=== PATIENT | female | born 1940 | race African-American/Black ===

== ENCOUNTER 2017-06-03 16:18 | Emergency (ER) | payer MEDICARE, MEDICAID ==
[~2017-06-03] VITALS: Ht 157.5 cm; Wt 89.5 kg
[~2017-06-03 16:18] MED LIST: LISINOPRIL5 MG PO; SIMVASTATIN10 MG PO; TRAMADOL HCL50 MG PO
[2017-06-03 17:03] LABS: IMMATURE GRANULOCYTES 0.4 % (0.0-1.0); MEAN CELL VOLUME 88.4 fL CALC (80.0-100.0); MEAN CORPUSCULAR HGB 29.5 pG CALC (26.0-32.0); MEAN CORPUSCULAR HGB CONC 33.3 g/L CALC (32.0-36.0); NEUT# 2.83 thou/uL (2.00-7.15); RED BLOOD COUNT 4.75 mill/uL (4.20-5.60); RED CELL DISTRI WIDTH 13.2 % (11.5-15.5)
[2017-06-03 17:11] LABS: ALBUMIN 4.1 g/dL (3.2-5.0); ALKALINE PHOSPHATASE 87 u/l (38-126); ANION GAP 14 (6-22 (CALC)); BILIRUBIN, TOTAL 0.7 mg/dL (0.0-1.4); BUN 13 mg/dL (8-23); BUN/CREATININE RATIO 20 (12-20 (CALC)); CALCIUM 9.6 mg/dL (8.4-10.2); CARBON DIOXIDE 26 mmol/l (22-30); CHLORIDE 106 mmol/l (95-108); CREATININE 0.6 mg/dL (0.5-1.0); GFR > 60 ML/MIN (>=60 (CALC)); GFR FOR AFR.AMER. > 60 ML/MIN (>=60 (CALC)); GLUCOSE 97 mg/dL (82-115); POTASSIUM 4.1 mmol/l (3.5-5.1); SGOT/AST 15 u/l (9-36); SGPT/ALT 23 u/l (11-66); SODIUM 142 mmol/l (137-146); TOTAL PROTEIN 6.8 g/dL (6.3-8.2)
[2017-06-03 17:23] LABS: MYOGLOBIN 45 ng/mL (0 - 62)
[2017-06-03] MEDS ORDERED: TYLENOL # 31 TAB PO (18:04)
[2017-06-03] MEDS ORDERED: LEVAQUIN750 MG PO (18:04)
[2017-06-03 20:15] VITALS: BP 152/76
== END 2017-06-03 20:15 | disposition home or self-care (01) ==
LOC: ED 16:18
PROVIDERS: Emergency Medicine
DX: J20.8 Acute bronchitis due to other specified organisms (principal); R05 Cough; R06.02 Shortness of breath; R22.1 Localized swelling, mass and lump, neck; I77.819 Aortic ectasia, unspecified site

== ENCOUNTER 2022-06-07 12:34 | Observation (INO) | payer MEDICARE, MEDICAID ==
[~2022-06-07] VITALS: Ht 157.5 cm; Wt 73.0 kg
[~2022-06-07 12:34] MED LIST changes: +LEVAQUIN750 MG PO; +TYLENOL # 31 TAB PO
--- NOTE | 2022-06-07 12:51 | NUR ---
PATIENT TO ROOM 8 VIA WHEELCHAIR.
[2022-06-07 13:16] LABS: HEMATOCRIT 42.2 % (37.0-47.0); HEMOGLOBIN 14.2 g/dl (12.0-16.0); IMMATURE GRANULOCYTES 0.3 % (0.0-5.0); MEAN CORPUSCULAR HGB 29.3 pG CALC (26.0-32.0); MEAN CORPUSCULAR HGB CONC 33.6 g/dL CAL (32.0-36.0); NEUT# 4.79 thou/uL (2.00-7.15); RED BLOOD COUNT 4.85 mill/uL (4.20-5.60); RED CELL DISTRI WIDTH 14.4 % (11.5-15.5)
[2022-06-07 13:29] LABS: ALBUMIN 4.1 g/dL (3.2-5.0); ALKALINE PHOSPHATASE 116 u/l (38-126); ANION GAP 13 (6-22 (CALC)); BILIRUBIN, TOTAL 0.6 mg/dL (0.0-1.4); BUN 8 mg/dL (8-23); BUN/CREATININE RATIO 15 (12-20 (CALC)); CARBON DIOXIDE 30 mmol/l (22-30); CHLORIDE 99 mmol/l (95-108); CPK 34 u/l (30-165); CREATININE 0.5 mg/dL (0.5-1.0); GFR FOR AFR.AMER. > 60 ML/MIN (>=60 (CALC)); GFR OTHER RACES > 60 ML/MIN (>=60 (CALC)); POTASSIUM 3.6 mmol/l (3.5-5.1); SODIUM 138 mmol/l (137-146); TOTAL PROTEIN 7.4 g/dL (6.3-8.2)
[2022-06-07 13:30] LABS: SGOT/AST 20 u/l (9-36)
--- NOTE | 2022-06-07 13:30 | NUR ---
assisted patient to reposition. patient laying in bed with family at beside. no acute distress
[2022-06-07 13:41] LABS: MYOGLOBIN 35 ng/mL (0 - 62)
--- NOTE | 2022-06-07 14:20 | NUR ---
patient lying in bed. no acute distress noted. family at bedside
--- NOTE | 2022-06-07 15:02 | NUR ---
straight cath completed. urine collected for screening. cheryl care provided. patient has no complaints at this time
[2022-06-07 15:37] LABS: URINE BILIRUBIN - DIPSTICK NEGATIVE (NEGATIVE); URINE BLOOD DIPSTICK SMALL (NEGATIVE); URINE COLOR YELLOW; URINE GLUCOSE - DIPSTICK NEGATIVE (NEGATIVE); URINE KETONE NEGATIVE (NEGATIVE); URINE PROTEIN - DIPSTICK TRACE mg/dL (NEG-TRACE); URINE UROBILINOGEN - DIPSTICK 0.2 E.U./dL (0.2)
[2022-06-07 15:51] LABS: URINE LEUK ESTERASE LARGE (NEGATIVE); URINE NITRITE - DIPSTICK POSITIVE (Negative)
[2022-06-07 16:04] LABS: URINE SQUAMOUS EPITHELIAL CELL FEW EPI/hpf (0-FEW); URINE WBC TNTC WBC/hpf (0-5)
[2022-06-07 16:05] LABS: URINE BACTERIA MANY hpf
--- NOTE | 2022-06-07 16:44 | NUR ---
TELEHEALTH CONSULT WITH ÓSCAR KIRBY COMPLETED IN ROOM VIA TELECART.
--- NOTE | 2022-06-07 17:03 | NUR ---
PATIENT RESTING IN BED. NO ACUTE DISTRESS. PATIENT HAS NO COMPLAINTS AT THIS TIME
--- NOTE | 2022-06-07 18:20 | NUR ---
PATIENT TO FLOOR AT THIS TIME.
[2022-06-07 18:32] VITALS: BP 123/69
--- NOTE | 2022-06-07 18:37 | NUR ---
bedside report given to guili. no acute distress noted. patient has no complaints. assisted patient to bed.
--- NOTE | 2022-06-07 21:15 | NUR ---
PT WAS NOTED IN BED LAYING FOLWERS. PT WAS A&O X3 TO PERSON, PLACE,AND TIME. PT WAS GOOD HISTORIAN THROUGH OUT ADM,ISSIONS PROCESS. PT DID NOT VERBALIZE OR SHOW ANY SIGNS OF SOB. PT MOOD WAS CALM AND COOPERATIVE. PT WAS A 1X ASSIST TO TURN IN BED. PT IS UNABLE TO MOVE LOWER EXTREMETIES OR FEEL SENSATION. PT DID STATE "MUSCLE SPASMS" IN LOWER EXTREMETIES. PT DID VERBALIZE PAIN IN LEFT SHOULDER OF 6 OUT OF A 0-10 SCALE. PT OFFERED HEATING PACK AND REPOSTIONED FOR COMFORT MEASURES. WILL CONTINUE FOLLOWING CARE PLAN AND MONITOR PT.
[2022-06-08] VITALS (7 sets, daily range): BP systolic 118–135; BP diastolic 60–72
--- NOTE | 2022-06-08 00:29 | NUR ---
PT NOTED IN BED SLEEPING FOWLERS. PT SHOWED NO S/S OF DISTRESS OR DISCOMFORT. CALL LIGHT AND TABLE WITHIN REACH OF PT. BEDWHEELS LOCKED, IN LOWEST POSITION AND SIDE RAILS UP. WILL CONTINUE TO MONITOR.
--- NOTE | 2022-06-08 04:40 | NUR ---
PT NOTED IN BED, FOWLERS, SLEEPING. NO S/S OF PAIN OR DISCOMFORT PRESENT. CALL LIGHT AND BEDSIDE TABLE WITHIN REACH. WILL CONTINUE TO MONITOR AND FOLLOW UP WITH CARE PLAN.
--- NOTE | 2022-06-08 07:31 | NUR ---
PT RESTING IN BED STATES NO PAIN. UPDATE DPT IN CURRENT PLAN OF CARE. PT INDICATED UNDERSTADNING. ASSESSMENT COMPLETED. FALL/SAFTEY PRECAUTION IN PLACE, CALL LIGHT WITHIN REACH
[2022-06-08 11:08] LABS: CHOLESTEROL HDL RATIO 3.2 (<4.4 (CALC))
--- NOTE | 2022-06-08 12:00 | NUR ---
PT RESTING WATCHNG TV. BREATHING EVEN AND UNLABORED. STATES NO PAIN. FALL/SAFTEY PRECAUTION IN [place], CALL LIGHT WITHIN REACH
--- NOTE | 2022-06-08 16:00 | NUR ---
PT RESTING IN BED. NO DISTRESS NOTED. FALL/SAFTEY PRECAUTION IN [place], CALL LIGHT WITHIN REACH
--- NOTE | 2022-06-08 16:53 | NUR ---
CONTACTED [employer] TO ORDER AN AIR MATTRESS (P500). SPOKE WITH FIDEL AT 1640 HRS. CONFIRMATION # [id number].
--- NOTE | 2022-06-08 17:16 | NUR ---
PT RESTING WTACHING TV. STATES NO PAIN. BREATHING EVEN AND UNLABORED. FALL/SAFTEY PRECAUTION IN PLACE, CALL LIGHT WITHIN REACH
--- NOTE | 2022-06-08 20:00 | NUR ---
PT IN BED FOWLERS, WATCHING TV. COMPLETED ASSEMENT AND IV ASSESS ON PT. NS FLUID RUNNING PER EMAR. IV SITE PRESENTS HEALTHY AND PT DENIES ANY DISCOMFORT. NOTED "PEA SIZE" REDNESS ON PT INNER RIGHT THIGH DURING ASSESSMENT. RN NOTIFIED. PT DENIES ANY PAIN OR DISCOMFORT AT THIS TIME. NO S/S OF DISCOMFORT OR DISTRESS PRESENT. CALL LIGHT AND BEDSIDE TABLE WITHIN REACH OF PT. BEDWHEELS LOCKED AND IN LOWEST POSITION. WILL CONTINUE TO FOLLOW UP WITH CARE PLAN AND MONITOR PT.
--- NOTE | 2022-06-09 00:11 | NUR ---
PT IN BED SLEEPING, HEAD OF BED 30 DEGREE ANGLE. NO S/S OF DISTRESS OR DISCOMFORT. SAFETY PRECAUTIONS IN PLACE. WILL CONTIUE TO MONITOR.
--- NOTE | 2022-06-09 04:05 | NUR ---
PT WAS TRANSFERRED VIA [employer] LIFT TO AN AIR MATRESS BED. PT LAYING FOWLERS IN BED, AWAKE. PT DENIES ANY PAIN OR DISCOMFORT AT THIS TIME. SAFETY PRECAUTIONS IN PLACE. WILL CONTINUE TO MONITOR.
[2022-06-09 05:17] VITALS: BP 146/70
[2022-06-09 05:45] LABS: HEMATOCRIT 39.7 % (37.0-47.0); MEAN CELL VOLUME 88.2 fL CALC (80.0-100.0); MEAN CORPUSCULAR HGB 28.9 pG CALC (26.0-32.0); MEAN CORPUSCULAR HGB CONC 32.7 g/dL CAL (32.0-36.0); RED BLOOD COUNT 4.5 mill/uL (4.20-5.60); RED CELL DISTRI WIDTH 14.7 % (11.5-15.5)
[2022-06-09 06:04] LABS: ALBUMIN 3.3 g/dL (3.2-5.0); ALKALINE PHOSPHATASE 95 u/l (38-126); ANION GAP 9 (6-22 (CALC)); BILIRUBIN, TOTAL 0.4 mg/dL (0.0-1.4); BUN 8 mg/dL (8-23); BUN/CREATININE RATIO 18 (12-20 (CALC)); CARBON DIOXIDE 28 mmol/l (22-30); CHLORIDE 104 mmol/l (95-108); CREATININE 0.5 mg/dL (0.5-1.0); GFR FOR AFR.AMER. > 60 ML/MIN (>=60 (CALC)); GFR OTHER RACES > 60 ML/MIN (>=60 (CALC)); POTASSIUM 3.6 mmol/l (3.5-5.1); SGOT/AST 16 u/l (9-36); SODIUM 138 mmol/l (137-146)
--- NOTE | 2022-06-09 07:00 | NUR ---
RECEIVE REPORT FROM MONICA BROWN.
[2022-06-09 07:22] VITALS: BP 146/71
[2022-06-09 07:23] VITALS: BP 146/71
--- NOTE | 2022-06-09 08:00 | NUR ---
PATIENT ALERT AND ORIENTED X3. RESTING STABLE IN BED AT THIS TIME. ASSESSMENTE HEAD-TO TOE COMPLETE. PATIENT IS EDUCATED ABOUD MEDICATIONS AND NURSING PLAN FOR TODAY. PATIENT REFER UNDERSTAND. SAFETY AND FALL PRECAUTIONS IN PLACE. CALL LIGHT WITHIN IN REACH.
[2022-06-09 15:14] VITALS: BP 144/69
--- NOTE | 2022-06-09 16:00 | NUR ---
PATIENT RESTING STABLE IN THE BED.
[2022-06-09 18:48] VITALS: BP 145/75
[2022-06-09 19:00] VITALS: BP 145/75
--- NOTE | 2022-06-09 21:45 | NUR ---
ASSESSMENT COMPLETE. PATIENT AWAKE, ALERT AND ORIENTED. VSS, NO DISTRESS NOTED. DENIES PAIN AT THIS TIME. BED IN LOW POSITION, LOCKED. CALL LIGHT WITHIN REACH.
--- NOTE | 2022-06-09 23:40 | NUR ---
RESTING QUIETLY EYES CLOSED. NO DISTRESS NOTED CALL LIGHT WITHIN REACH.
--- NOTE | 2022-06-10 01:45 | NUR ---
report given to Telly ALCAZAR
--- NOTE | 2022-06-10 01:45 | NUR ---
REPORT RECEIVED FROM Manjula FLOYD RN, CARE OF PT ASSUMED AT THIS TIME.
--- NOTE | 2022-06-10 02:00 | NUR ---
PT LAYING IN BED WITH EYES CLOSED, RESPIRATIONS REGULAR AND UNLABORED. NO APPARENT DISTRESS. APPEARS TO BE SLEEPING COMFORTABLY. CALL ROOT WITHIN REACH.
[2022-06-10 04:00] VITALS: BP 142/76
[2022-06-10 04:21] VITALS: BP 142/76
--- NOTE | 2022-06-10 06:00 | NUR ---
PT LAYING IN BED WITH EYES CLOSED, RESPIRATIONS REGULAR AND UNLABORED. NO APPARENT DISTRESS. APPEARS TO BE SLEEPING COMFORTABLY. CALL ROOT WITHIN REACH.
[2022-06-10 06:18] LABS: HEMATOCRIT 41.1 % (37.0-47.0); HEMOGLOBIN 13.7 g/dl (12.0-16.0); MEAN CELL VOLUME 88.4 fL CALC (80.0-100.0); MEAN CORPUSCULAR HGB 29.5 pG CALC (26.0-32.0); MEAN CORPUSCULAR HGB CONC 33.3 g/dL CAL (32.0-36.0); RED BLOOD COUNT 4.65 mill/uL (4.20-5.60); RED CELL DISTRI WIDTH 14.6 % (11.5-15.5)
[2022-06-10 06:30] LABS: ALBUMIN 3.5 g/dL (3.2-5.0); ALKALINE PHOSPHATASE 102 u/l (38-126); ANION GAP 11 (6-22 (CALC)); BILIRUBIN, TOTAL 0.3 mg/dL (0.0-1.4); BUN 10 mg/dL (8-23); BUN/CREATININE RATIO 22 (12-20 (CALC)); CARBON DIOXIDE 31 mmol/l (22-30); CHLORIDE 102 mmol/l (95-108); CREATININE 0.5 mg/dL (0.5-1.0); GFR FOR AFR.AMER. > 60 ML/MIN (>=60 (CALC)); GFR OTHER RACES > 60 ML/MIN (>=60 (CALC)); POTASSIUM 4.2 mmol/l (3.5-5.1); SGOT/AST 18 u/l (9-36); SODIUM 140 mmol/l (137-146); TOTAL PROTEIN 6.4 g/dL (6.3-8.2)
--- NOTE | 2022-06-10 07:00 | NUR ---
RECEIVE REPORT FROM KIKI BROWN.
--- NOTE | 2022-06-10 12:34 | NUR ---
PATIENT REMAINS RESTING IN BED WITH EYES CLOSED. NO SIGNS OF DISTRESS NOTED. NO COMPLAINTS OF PAIN. BED REMAINS IN LOW POSITION. SAFETY AND FALL PRECAUTIONS IN PLACE. CALL LIGHT WITHIN IN REACH.
[2022-06-10 14:12] VITALS: BP 145/73
--- NOTE | 2022-06-10 14:47 | NUR ---
pt checked at this time for incontinence.pt requested to be checked felt like she was wet. pt still has purwick in place. pt had 500 ml out of urine. pt not wet at this time.
--- NOTE | 2022-06-10 16:00 | NUR ---
PATIENT RESTING IN BED. NO COMPLAINTS VOICED AT THIS TIME. BED REMAINS IN LOW POSITION. CALL LIGHT IN REACH.
--- NOTE | 2022-06-10 17:00 | NUR ---
Discharge instructions given. Patient verbalizes understanding of same. Discharged in stable condition via Stretcher to *Other with staff. All belongings sent with pt.
--- NOTE | 2022-06-10 17:28 | NUR ---
PATIENT HAVE ORDER FOR TRANSFER TO [facility]. PATIENT AND FAMILY IS EDUCATED ABOUD TRANSFER. BOTH REFER UNDERSTAND. REPORT GIVEN TO CARROLL ALCAZAR. PATIENT STABLE AT THIS TIME.
== END 2022-06-10 17:53 | disposition short-term general hospital (02) ==
LOC: ED 12:34 → ED-I 16:25 → ED 17:24 → MS2 17:25
PROVIDERS: Nurse Practitioner; Nurse Practitioner Family; ADMIT Internal Medicine; ATTEND Internal Medicine
DX: M48.8X4 Other specified spondylopathies, thoracic region (principal); G95.29 Other cord compression; N39.0 Urinary tract infection, site not specified; R15.9 Full incontinence of feces; N39.498 Other specified urinary incontinence; K59.00 Constipation, unspecified; I10 Essential (primary) hypertension; G62.9 Polyneuropathy, unspecified; E78.5 Hyperlipidemia, unspecified; G82.20 Paraplegia, unspecified; B96.89 Other specified bacterial agents as the cause of diseases classified elsewhere; Z74.01 Bed confinement status; Z20.822 Contact with and (suspected) exposure to COVID-19

== ENCOUNTER 2022-08-08 06:56 | Inpatient (IN) | payer MEDICARE, MEDICAID ==
[2022-08-08] VITALS (7 sets, daily range): BP systolic 126–166; BP diastolic 62–100
[~2022-08-08] VITALS: Ht 154.9 cm; Wt 91.4 kg
--- NOTE | 2022-08-08 07:07 | NUR ---
PATIENTT TO ROOM 14
--- NOTE | 2022-08-08 07:30 | NUR ---
RESPIRATORY AT BEDSIDE, O2 TURNED OFF BY AT 0715 AND O2% IS 96% ON RA. NAD. VSS. BILAT IV'S PLACED IN AC'S.
[2022-08-08 08:53] LABS: BASO% 0.4 % (0-3); IMMATURE GRANULOCYTES 3.6 % (0.0-5.0); LYMPH% 19.1 % (15-41); MEAN CELL VOLUME 86.8 fL CALC (80.0-100.0); MEAN CORPUSCULAR HGB 28.6 pG CALC (26.0-32.0); MONO% 5.6 % (2-13); NEUT# 3.82 thou/uL (2.00-7.15); NEUT% 71.3 % (42-76); RED BLOOD COUNT 5.76 mill/uL (4.20-5.60); RED CELL DISTRI WIDTH 15.9 % (11.5-15.5)
[2022-08-08 08:53] LABS: ALBUMIN 3.6 g/dL (3.2-5.0); ALKALINE PHOSPHATASE 103 u/l (38-126); ANION GAP 8 (6-22 (CALC)); BUN 11 mg/dL (8-23); BUN/CREATININE RATIO 32 (12-20 (CALC)); CARBON DIOXIDE 33 mmol/l (22-30); CHLORIDE 97 mmol/l (95-108); CREATININE 0.4 mg/dL (0.5-1.0); GFR FOR AFR.AMER. > 60 ML/MIN (>=60 (CALC)); GFR OTHER RACES > 60 ML/MIN (>=60 (CALC)); POTASSIUM 3.6 mmol/l (3.5-5.1); SGOT/AST 26 u/l (9-36); SODIUM 135 mmol/l (137-146); TOTAL PROTEIN 6.8 g/dL (6.3-8.2)
[2022-08-08 08:54] LABS: HEMOGLOBIN 16.5 g/dl (12.0-16.0)
[2022-08-08 08:59] LABS: BILIRUBIN, TOTAL 0.7 mg/dL (0.02-1.3)
[2022-08-08] MEDS ORDERED: NORVASC5 M1 PO (10:08)
[2022-08-08] MEDS ORDERED: DEXAMETHASON0.5 MG PO (10:10)
[2022-08-08] MEDS ORDERED: KLOR-CON M2020 MEQ PO (10:10)
[2022-08-08] MEDS ORDERED: PROTONIX40 M2 PO (10:11)
--- NOTE | 2022-08-08 10:20 | NUR ---
Reassessment of patient completed. No distress noted.
--- NOTE | 2022-08-08 17:23 | NUR ---
PATIENT REPORTS SOB INFORMED MD. PATIENT OXYGEN LEVEL ON RA 97%. WAITING PRN INHALER.
--- NOTE | 2022-08-08 17:59 | NUR ---
PRN INHALER GIVEN ENCOURAGE PATIENT TO ASK FOR IT IF SOB CONTINUES
--- NOTE | 2022-08-08 20:00 | NUR ---
RECEIVED REPORT FROM NURSE YULIYA, PATIENT ON COVID ISOLATION, ALERT ORIENTED CURRENTLY EATING DINNER, SALINE LOCK NOTED ON RAC G 22 AND G 20 LAC BOTH PATENT FLUSHES WELL, REMAINS ON TELEMETRY SR WITH IVCD 89, COARSE LUNG SOUNDS, ACTIVE BOWEL SOUNDS LBM 08/08, CALL LIGHT IN REACH.
--- NOTE | 2022-08-09 | NUR ---
PATIENT IN BED, INCONTINET OF BLADDER, PERICARE DONE AND PUREWICK NOW IN PLACE.
[2022-08-09 00:08] VITALS: BP 116/54
--- NOTE | 2022-08-09 04:00 | NUR ---
PATIENT RESTING IN BED EYES CLOSED, BREATHING UNLABORED, REMAINS ON ISOLATION FOR COVID, CALL LIGHT IN REACH.
[2022-08-09 04:20] VITALS: BP 123/55
[2022-08-09 05:29] LABS: HEMATOCRIT 44.4 % (37.0-47.0); HEMOGLOBIN 15.2 g/dl (12.0-16.0); IMMATURE GRANULOCYTES 2.6 % (0.0-5.0); LYMPH% 7.9 % (15-41); MEAN CELL VOLUME 85.9 fL CALC (80.0-100.0); MEAN CORPUSCULAR HGB 29.4 pG CALC (26.0-32.0); MEAN CORPUSCULAR HGB CONC 34.2 g/dL CAL (32.0-36.0); MONO% 5.4 % (2-13); NEUT# 4.79 thou/uL (2.00-7.15); NEUT% 84.1 % (42-76); RED BLOOD COUNT 5.17 mill/uL (4.20-5.60); RED CELL DISTRI WIDTH 15.3 % (11.5-15.5)
[2022-08-09 05:40] LABS: ALBUMIN 3.1 g/dL (3.2-5.0); ALKALINE PHOSPHATASE 88 u/l (38-126); ANION GAP 6 (6-22 (CALC)); BUN 13 mg/dL (8-23); BUN/CREATININE RATIO 25 (12-20 (CALC)); CARBON DIOXIDE 32 mmol/l (22-30); CHLORIDE 99 mmol/l (95-108); CREATININE 0.5 mg/dL (0.5-1.0); GFR FOR AFR.AMER. > 60 ML/MIN (>=60 (CALC)); GFR OTHER RACES > 60 ML/MIN (>=60 (CALC)); MAGNESIUM 2.3 mg/dL (1.6-2.3); POTASSIUM 3.5 mmol/l (3.5-5.1); SGOT/AST 21 u/l (9-36); SODIUM 132 mmol/l (137-146)
[2022-08-09 05:49] LABS: BILIRUBIN, TOTAL 0.2 mg/dL (0.02-1.3)
[2022-08-09 06:18] LABS: URINE BILIRUBIN - DIPSTICK NEGATIVE (NEGATIVE); URINE BLOOD DIPSTICK SMALL (NEGATIVE); URINE COLOR YELLOW; URINE GLUCOSE - DIPSTICK 250 mg/dL (NEGATIVE); URINE KETONE NEGATIVE (NEGATIVE); URINE PROTEIN - DIPSTICK NEGATIVE (NEG-TRACE); URINE SPECIFIC GRAVITY 1.015
[2022-08-09 06:20] LABS: URINE LEUK ESTERASE MODERATE (NEGATIVE); URINE NITRITE - DIPSTICK NEGATIVE (Negative)
[2022-08-09 06:22] LABS: URINE BACTERIA FEW hpf; URINE SQUAMOUS EPITHELIAL CELL FEW EPI/hpf (0-FEW)
[2022-08-09 07:13] VITALS: BP 161/81
[2022-08-09 10:22] VITALS: BP 158/89
--- NOTE | 2022-08-09 18:29 | NUR ---
PATIENT STATES FEELING BETTER. NO CHANGES AT THIS TIME. WILL CONTINUE TO MONITOR.
[2022-08-09 19:14] VITALS: BP 139/67
[2022-08-10] VITALS (7 sets, daily range): BP systolic 124–152; BP diastolic 61–81
--- NOTE | 2022-08-10 07:49 | NUR ---
0700 REPORT RECEIVED FROM DAYLIN. PT RESTING IN BED WITH EYES OPEN. PT ALERT AND ORIENTED X 4. RESP EVEN AND UNLABORED. NO SIGNS OF DISTRESS NOTED. PT UPDATED ON POC, WILL NEED REINFORCEMENT. ALL PERSONAL ITEMS WITHIN REACH. SAFETY PRECAUTIONS IN PLACE.
--- NOTE | 2022-08-10 12:36 | NUR ---
PT REPORTS BEING SOB, OXYGEN SAT OM ROOM AIR 95%. OXYGEN THERAPY AT 2L NC FOR COMFORT, O2 SATS 96-97%. VENTOLIN INHALER X [address] MUSE MADE AWARE AND NEW ORDERS RECEIVED. PT RESTING QUIETLY IN BED EATING LUNCH. WILL CONTINUE TO MONITOR.
--- NOTE | 2022-08-10 15:05 | NUR ---
02 2L NC SAT 97%
[2022-08-11] VITALS (7 sets, daily range): BP systolic 108–175; BP diastolic 66–94
--- NOTE | 2022-08-11 05:39 | NUR ---
pt slept mostly, tolrate meds as order, vitals stable, call light within reached, will cont to monitor
--- NOTE | 2022-08-11 08:00 | NUR ---
PT IN BED RESTING, AWKAE AND ALERT. PT HAS NO C/O PAIN, PT HAS TELE ON ALL LEADS ATTACHED. PT HAS IV SITE TO RAC WITH NS @80ML/HR , PT ALSO HAS IV SITE TO LAC THAT IS PATENT AND CLEAN. PUREWICK ON AND DRAINING DARK YELLOW URINE. PT HAS O2@2L VIA NC. PT HAS CALL LIGHT WITHIN REACH AND SAFETY PRECAUTIONS IN PLACE.
--- NOTE | 2022-08-11 11:14 | NUR ---
ORDER ENTERED TO TITRATE OCXYGEN. O2 CURRENTLY AT 1 LITER NC. DECREASED TO 0.5L NC, PT PULSE OX AT 98%. WILL CONTINUE TO MONITOR.
[2022-08-11] MEDS ORDERED: OMNICEF300 MG PO (12:38)
--- NOTE | 2022-08-11 13:30 | NUR ---
PT IN BED WITH HEAD OF BED UP, PT NOTED BY PROVIDER TO HAVE COARSE LUNG SOUNDS. RT WAS CALLED FOR INTERVENTIONS TO ASIST PT IN CLEAING LUNGS. PER PROVIDER STOP IV FLUIDS AND PUSH LASIX IV 40 MG. WILL CONTINUE TO MONITOR PT AND LUNG SOUNDS CLOSELY.
--- NOTE | 2022-08-11 16:20 | NUR ---
PY IN BED RESTING , HEAD OF BED UP. PT IS AWAKE AND ALERT, LUNG SOUNDS COARSE UT IMPROVING WITH LASIX. MUCINEX ORDERED AND GIVEN. PT HAS O2@ 0.5L VIA NC IV SITE TO LAC CLEAN AND INTACT, IV SITE TO RAC CLEAN AND INTACT WELL. PT HAS NO C/O PAIN AT THIS TIME. PUREWICK IS ON WITH CLEAR, YELLOW URINE. CALL LIGHT WITHIN REACH, SAFETY MEASURES IN PLACE.
--- NOTE | 2022-08-12 01:03 | NUR ---
PT SLEEPING, RESTING IN BED. VITALS STABLE. NO COMPLAINTS FROM PT.
[2022-08-12 04:44] VITALS: BP 125/69
[2022-08-12 06:28] VITALS: BP 119/70
--- NOTE | 2022-08-12 08:00 | NUR ---
PT LAYING IN BED WITH HOB UP AWAKE AND ALERT. PT HAS 02 @0.5 LITERS ON VIA NC, PT IV SITE TO RAC AND LAC, PATENT. PUREWICK IN PLACE AND DRAINING CLEAR ,YELLOW URINE. PT HAS NO C/O PAIN AT THIS TIME.
[2022-08-12 10:28] LABS: HEMATOCRIT 44.5 % (37.0-47.0); HEMOGLOBIN 15.1 g/dl (12.0-16.0); IMMATURE GRANULOCYTES 5.3 % (0.0-5.0); MEAN CELL VOLUME 85.1 fL CALC (80.0-100.0); MEAN CORPUSCULAR HGB 28.9 pG CALC (26.0-32.0); MEAN CORPUSCULAR HGB CONC 33.9 g/dL CAL (32.0-36.0); PLATELET COUNT 99 thou/uL (130-400); RED BLOOD COUNT 5.23 mill/uL (4.20-5.60); RED CELL DISTRI WIDTH 15.3 % (11.5-15.5)
[2022-08-12 10:36] LABS: MANUAL DIFFERENTIAL YES
[2022-08-12 10:52] VITALS: BP 139/94
[2022-08-12 11:02] LABS: ALBUMIN 2.8 g/dL (3.2-5.0); ALKALINE PHOSPHATASE 83 u/l (38-126); ANION GAP 10 (6-22 (CALC)); BILIRUBIN, TOTAL 0.3 mg/dL (0.02-1.3); BUN 14 mg/dL (8-23); BUN/CREATININE RATIO 50 (12-20 (CALC)); CARBON DIOXIDE 28 mmol/l (22-30); CHLORIDE 97 mmol/l (95-108); CREATININE 0.3 mg/dL (0.5-1.0); GFR FOR AFR.AMER. > 60 ML/MIN (>=60 (CALC)); GFR OTHER RACES > 60 ML/MIN (>=60 (CALC)); POTASSIUM 3.8 mmol/l (3.5-5.1); SGOT/AST 39 u/l (9-36); SODIUM 131 mmol/l (137-146); TOTAL PROTEIN 5.4 g/dL (6.3-8.2)
[2022-08-12 11:09] LABS: ACANTHOCYTES FEW; BAND 9 % (0-8); PLATELET ESTIMATE SLIGHT INCREASE; POIKILOCYTOSIS FEW
[2022-08-12 11:12] LABS: OVALOCYTES FEW; SCHISTOCYTES FEW
--- NOTE | 2022-08-12 11:30 | NUR ---
PT C/O SOB, LUNGS SOUNDS COURSE, PROVIDER AWARE. LASIX IV ORDERED AND GIVEN. PT VITAL SIGNS ARE NORMAL. PT COMFORTED TO HELP WITH ANXIETY. PT HAS CALL LIGHT WITHIN REACH. WILL CONTINUE TO MONITOR PT CLOSELY.
--- NOTE | 2022-08-12 12:00 | NUR ---
PT LAYING IN BED RESTING AT THIS ITME WITH EYES CLOSED. BREATHING IS NON LABORED AT THIS TIME. PULSE OX ATTACHED WITH 02 SAT AT 97%, REMAINS ON O2 AT 2 LITER NC. TELE LEADS ATTACHED. IV SITE INTACT AND FLUSHING. PT HAS NO C/O PAIN AT THIS TIME.
[2022-08-12 15:01] VITALS: BP 104/61
[2022-08-12 15:02] VITALS: BP 104/61
--- NOTE | 2022-08-12 16:00 | NUR ---
PT IN BED WITH HOB UP , PT HAS NO C/O PAIN AT THIS TIME. PT HAS TELE ON AND LEADS ATTACHED, O2@ 0.5L NC SATS @ 97%. WILL CONTINUE TO MONITOR CLOSELY. CALL LIGHT WITHIN PT REACH AND SAFETY PRECAUTIONS IN PLACE.
[2022-08-12 19:00] VITALS: BP 112/59
--- NOTE | 2022-08-12 20:00 | NUR ---
RECEIVED REPORT FROM NURSE MARIANO PATIENT RESTING IN BED, EATING DINNER, ON COVID ISOLATION, PATIENT IS PARAPLEGIC, ALERT ORIENTED, SALINE LOCK NOTED ON RAC G22 AND 22 ON LAC PATENT FLUSHES WELL, HOOKED ON TELEMETRY SR WITH IVCD 76, ON O2 @ 0.5LPM VIA NC, ON PUREWICK DRAINING YELLOW CLORED URINE CALL LIGHT IN REACH.
[2022-08-13] VITALS (7 sets, daily range): BP systolic 111–128; BP diastolic 64–72
--- NOTE | 2022-08-13 | NUR ---
PATIENT APPEARS TO BE RESTING WITH EYES CLSOED, REMAINS ON TELEMTERY SR WIT IVCD 80, NOT IN DISTRESS CALL LIGHT IN REACH.
--- NOTE | 2022-08-13 04:30 | NUR ---
PATIENT PRESS CALL LIGHT C/O SOB, PATIENT RESTLESS, SPO2 @ 92% PRN ATIVAN GIVEN V/S FOLLOWS: 121/78
--- NOTE | 2022-08-13 04:58 | NUR ---
SPO2 DOWN TO 80% RAISED O2 @ 5LPM STILL AT 83% CALLED RAPID RESPONSE, RESPIRATORY IN ROOM PLACE PATIENT ON A NON REBREATHER, PATIENT SOUND WET CRACKLES, CALLED FLUID JET CUTTER OPERATOR DR. CASTILLO, ORDER FOR A STAT CXR PORTABLE AND LASIX 40MG IV NOW.
[2022-08-13 05:30] LABS: BASO% 0.1 % (0-3); HEMATOCRIT 48.8 % (37.0-47.0); HEMOGLOBIN 16.8 g/dl (12.0-16.0); IMMATURE GRANULOCYTES 4.5 % (0.0-5.0); LYMPH% 7.3 % (15-41); MEAN CELL VOLUME 85.9 fL CALC (80.0-100.0); MEAN CORPUSCULAR HGB 29.6 pG CALC (26.0-32.0); MEAN CORPUSCULAR HGB CONC 34.4 g/dL CAL (32.0-36.0); MONO% 4.8 % (2-13); NEUT# 7.48 thou/uL (2.00-7.15); NEUT% 83.3 % (42-76); RED BLOOD COUNT 5.68 mill/uL (4.20-5.60); RED CELL DISTRI WIDTH 15.4 % (11.5-15.5)
[2022-08-13 05:43] LABS: ALBUMIN 3.3 g/dL (3.2-5.0); ALKALINE PHOSPHATASE 109 u/l (38-126); ANION GAP 10 (6-22 (CALC)); BUN 14 mg/dL (8-23); BUN/CREATININE RATIO 59 (12-20 (CALC)); CARBON DIOXIDE 30 mmol/l (22-30); CHLORIDE 95 mmol/l (95-108); CREATININE 0.2 mg/dL (0.5-1.0); GFR FOR AFR.AMER. > 60 ML/MIN (>=60 (CALC)); GFR OTHER RACES > 60 ML/MIN (>=60 (CALC)); POTASSIUM 4.4 mmol/l (3.5-5.1); SGOT/AST 45 u/l (9-36); SODIUM 130 mmol/l (137-146); TOTAL PROTEIN 6.3 g/dL (6.3-8.2)
[2022-08-13 05:53] LABS: BILIRUBIN, TOTAL 1.1 mg/dL (0.02-1.3)
--- NOTE | 2022-08-13 07:40 | NUR ---
PATIENT BACK ON NASAL CANULA AT 3LPM, MAINTAINING SATURATION AT 99-100% ON 3LPM, DAY NURSE AWARE, POST VOID AFTER LASIX 350CC YELLOW URINE.
--- NOTE | 2022-08-13 08:00 | NUR ---
ASSUMED CARE OF PT. PT IN NO DISTRESS. ASSESSMENT COMPLETE. PLAN OF CARE DISCUSSED. CALL LIGHT WITHIN REACH.
--- NOTE | 2022-08-13 12:00 | NUR ---
NO CHANGE FROM PREVIOUS ASSESSEMNT. PT IN BED. REFUSING TO BE TURNED. STATES SHE JUST WANTS TO SLEEP. FAMILY AT BEDSIDE.
--- NOTE | 2022-08-13 16:00 | NUR ---
PT RESTING IN BED. PER MAINTENANCE REPAIRMAN PT CLEANED AND REPOSITIONED. PT IN NO DISTRESS. CALL LIGHT WITHIN REACH.
--- NOTE | 2022-08-13 20:00 | NUR ---
RECEIVED REPORT FROM NURSE GÓMEZ, PATIENT RESTING IN BED, HOOKED ON O2 @3LPM VIA NC, BREATHING SHALLOW, COARSE LUNG SOUNDS, SALINE LOCK ON RAC G 22 PATENT FLUSHES WELL, SALINE LOCK ON LAC PATENT WELL, PATIENT REFUSED TO CHANGE IV SITE AT THIS TIME, PATIENT ON TELEMETRY SR WITH IVCD 66, LBM 2/4, CALL LIGHT IN REACH.
--- NOTE | 2022-08-14 | NUR ---
PATIENT IN BED, REMAINS ON O2 @ 3LPM VIA NC, RESTING EYES CLOSED, CALL LIGHT IN REACH.
--- NOTE | 2022-08-14 04:00 | NUR ---
PATIENT TURNED A ND REPOSITIONED, DRESSING ON SACRAL AREA NOT NEEDED AT THIS TIME, NO OPEN AREA NOTED, REMAINS ON 3LPM VIA NC NOT IN DISTRESS, CALL LIGHT IN REACH.
[2022-08-14 04:21] VITALS: BP 135/72
--- NOTE | 2022-08-14 05:53 | NUR ---
PATIENT REFUSED LABS THIS MORNING, DAY SHIFT LUGGAGE REPAIRER WILL RETRY.
--- NOTE | 2022-08-14 07:50 | NUR ---
0700 BEDSIDE REPORT RECEIVED FROM INGE STOVER. PT RESTING IN BED WITH EYES CLOSED, OXYGEN AT 3L NC. NO SIGNS OF DISTRESS NOTED. PT REMAINS ON AIRBOURNE PRECAUTIONS +COVID. ALL PERSONAL ITEMS WITHIN REACH. SAFETY PRECAUTIONS IN PLACE.
--- NOTE | 2022-08-14 11:24 | NUR ---
PT REFUSED @1200 VITALS.
[2022-08-14 15:22] VITALS: BP 124/77
[2022-08-14 20:00] VITALS: BP 118/61
--- NOTE | 2022-08-14 20:00 | NUR ---
RECEIVED REPORT FROM DAY NURSE PATIENT RESTING IN BED PATIENT IS PARAPLEGIC, HOOKED ON O2 @ 3LPM VIA NC, SALINE LOCK ON RAC PATENT FLUSHES WELL AND LAC PATENT FLUSHES WELL. COARSE LUNG SOUNDS ON BOTH LUNG AMAYA, REMAINS ON ISOLATION FOR COVID, CALL LIGHT IN REACH.
[2022-08-15] VITALS (26 sets, daily range): BP systolic 82–157; BP diastolic 49–85
--- NOTE | 2022-08-15 | NUR ---
PATIENT IN BED, RESTING IN BED, NOT IN DISTRESS CALL LIGHT IN REACH.
--- NOTE | 2022-08-15 04:33 | NUR ---
RESTING WITH EYES CLSOSED, REMAINS ON O2 @ 3LPM VIA NC NOT IN DISTRESS CALL LIGHT IN REACH.
--- NOTE | 2022-08-15 07:47 | NUR ---
REPORT RECEIVED FROM FIELD SALES MANAGER - PT SEEN RESTING IN BED WITH EYES CLOSED - NO S./S DISTRESS - CALL LIGHT IN REACH
--- NOTE | 2022-08-15 10:30 | NUR ---
Telemetry called stating pt HR hit 200's and then came back down to 120's. Currently pt HR is reading 93. No s/s distress seen - When i assessed pt she was having a cough spell so not sure if it was due to that - will cont to monitor and notify MD as needed - pt denies any chest pain or discomfort - call light in reach and pt verbalized understanding of how to use to call me when needed
--- NOTE | 2022-08-15 12:25 | NUR ---
Pt resting in bed eating minimal lunch - pt states shes short of breath, o2 is 95% on 3L NC - no s/s distress - call light in reach - will monitor
--- NOTE | 2022-08-15 13:33 | NUR ---
Pt c/o she could not breathe, when i checked o2 saturation shes 94% on 4l nc - I called RT as i was concerned with her lung sounds, RT verified lungs sounded coarse - I spoke with EMERGENCY ROOM ORDERLY she is aware and does not believe its fluid related as i asked for lasix - per oil well driller lasix has not worked recently, shes going to try and get a repeat covid swab order and if pt is negative we will begin duo nebs and mucomyst - pt still very anxious so i gave her ordered PRN ativan and will cont to monitor
--- NOTE | 2022-08-15 14:47 | NUR ---
Pt satting in 70s per COMPUTER CUSTOMER SUPPORT SPECIALIST, when i assessed pt she was de satted to 79 - tried repositioning pt and no change - put pt on NRB @ 15 L and shes satting 92% - RT paged for further assessment
--- NOTE | 2022-08-15 15:35 | NUR ---
pt transferred to ICU 8 for BIPAP as on 15l NRB pt still satting 76-78% -Pt taken by bed with RN and TRAIN CONTROL TECHNICIAN and report given to Shakeel ALCAZAR - all pt belongings and medications taken over as well
--- NOTE | 2022-08-15 16:03 | NUR ---
PT ARRIVES TO ICU 8 FROM MED/SURG FLOOR, ACCOMPANIED BY NURSE NICOLE ALCAZAR. PT IS ALERT, NOT TALKATIVE. PT PLACED ON BIPAP UPON ARRIVAL, SATS INITIALLY IN LOW 80s, NOW AT 90%. DAUGHTER AT BEDSIDE.
--- NOTE | 2022-08-15 19:30 | NUR ---
awakens easily. denies distress. bipap conts. managed care manager shows sinus rhythm pacs ivcd. #20 lac saline lock. pure wick in place. requires total care for all needs. turned & repositioned. fall & air/contact precautions cont.
--- NOTE | 2022-08-15 21:27 | NUR ---
Bipap removed from pt, placed on 8L HFNC.
--- NOTE | 2022-08-15 22:00 | NUR ---
eyes closed. o2 cont per nc. no distress.
[2022-08-16] VITALS (16 sets, daily range): BP systolic 99–137; BP diastolic 54–81
--- NOTE | 2022-08-16 00:01 | NUR ---
eyes closed. no distress. home organizer shows sinus rhythm pacs ivcd.
--- NOTE | 2022-08-16 02:33 | NUR ---
resting quietly. resps even & unlabored. no apparent distress.
--- NOTE | 2022-08-16 03:45 | NUR ---
[id number] pulse ox shows 87-88%. o2 per nc increased to 7 l/m w/o relief. rt notified & bipap was initiated per pts request. pt doesn't appear in resp diff.
--- NOTE | 2022-08-16 03:59 | NUR ---
bus monitor shows 16 sec of svt.
--- NOTE | 2022-08-16 04:53 | NUR ---
Pt place on Bipap due to decreasing spo2 and increasing WOB.
[2022-08-16 05:40] LABS: HEMATOCRIT 44.4 % (37.0-47.0); HEMOGLOBIN 15.2 g/dl (12.0-16.0); IMMATURE GRANULOCYTES 4.2 % (0.0-5.0); LYMPH% 5.3 % (15-41); MEAN CELL VOLUME 85.2 fL CALC (80.0-100.0); MEAN CORPUSCULAR HGB 29.2 pG CALC (26.0-32.0); MEAN CORPUSCULAR HGB CONC 34.2 g/dL CAL (32.0-36.0); MONO% 2.3 % (2-13); NEUT# 8.04 thou/uL (2.00-7.15); NEUT% 88.2 % (42-76); RED BLOOD COUNT 5.21 mill/uL (4.20-5.60)
--- NOTE | 2022-08-16 06:00 | NUR ---
bipap cont. no apparent resp diff. site monitor shows sinus rhythm pacs ivcd.
[2022-08-16 06:21] LABS: ALBUMIN 3.1 g/dL (3.2-5.0); ALKALINE PHOSPHATASE 99 u/l (38-126); BUN 12 mg/dL (8-23); BUN/CREATININE RATIO 40 (12-20 (CALC)); C-REACTIVE PROTEIN 6.6 mg/dL (0-0.9); CHLORIDE 91 mmol/l (95-108); CREATININE 0.3 mg/dL (0.5-1.0); GFR FOR AFR.AMER. > 60 ML/MIN (>=60 (CALC)); GFR OTHER RACES > 60 ML/MIN (>=60 (CALC)); SGOT/AST 22 u/l (9-36); SODIUM 131 mmol/l (137-146)
[2022-08-16 06:22] LABS: ANION GAP 6 (6-22 (CALC)); BILIRUBIN, TOTAL 0.5 mg/dL (0.02-1.3); CARBON DIOXIDE 37 mmol/l (22-30); POTASSIUM 3.4 mmol/l (3.5-5.1)
--- NOTE | 2022-08-16 08:00 | NUR ---
PT AT REST IN THE BED, BIPAP IN PLACE. PT DOES NOT WANT TO EAT BREAKFAST. MEDS GIVEN WITH WATER, PT SWALLOWS WITHOUT CHOKING OR COUGH.
--- NOTE | 2022-08-16 12:00 | NUR ---
PT AGAIN REFUSES MEAL. NO CHANGE IN STATUS ID SEEN RESTING IN THE BED WITH BIPAP MASK IN PLACE.
--- NOTE | 2022-08-16 19:15 | NUR ---
awakens easily. denies resp diff. o2 cont per bipap. telemetry monitor shows sinus rhythm pacs ivcd. #20 lac saline lock. pure wick in place. urine cloudy yellow. turned & repositioned. fall precautions, air/contact isolation & air mattress conts. requires total care for all needs.
--- NOTE | 2022-08-16 22:00 | NUR ---
eyes closed. bipap conts. threat monitoring analyst shows sinus rhythm pacs ivcd.
[2022-08-17] VITALS (23 sets, daily range): BP systolic 90–134; BP diastolic 47–81
--- NOTE | 2022-08-17 00:01 | NUR ---
eyes closed. no distress. bipap cont.
--- NOTE | 2022-08-17 02:00 | NUR ---
resting quietly. resps even & unlabored. no apparent distress.
--- NOTE | 2022-08-17 04:10 | NUR ---
lab here. pt refused blood draw.
--- NOTE | 2022-08-17 06:00 | NUR ---
bodily injury adjuster shows sinus rhythm pacs ivcd.
--- NOTE | 2022-08-17 09:16 | NUR ---
pt off bipap notified by nurse on 6l nc sat 99% decreased to 4L sat 97%
--- NOTE | 2022-08-17 09:54 | NUR ---
PATIENT MORE ALERT THAN YESTERDAY, INTERACTIVE, ATE MOST OF HER BREAKFAST. SEEN BY DR LANGFORD. PATIENT TAKEN OFF BIPAP AD PUT ON NASAL CANNULA AT 6LPM.PATIENT TOLERATED FOOD WELL.
--- NOTE | 2022-08-17 11:00 | NUR ---
NO CHANGE IN STATUS PT HAS REMAINED AT REST IN THE BED. AIR MATTRESS IN PLACE FOR SKIN PRESERVATION.
--- NOTE | 2022-08-17 13:01 | NUR ---
bipap standby pt decreased to 3L NC sat 98%
--- NOTE | 2022-08-17 14:37 | NUR ---
PT DID EAT ABOUT HALF LUNCH. STUDENT NURSE FED PT.
--- NOTE | 2022-08-17 18:27 | NUR ---
PT CHANGED FOR URINARY INCONTINENCE, SEEN TO HAVE PUS UPON CLEANING URETHRAL AREA. PT FED SUPPER, ATE 75%. PT CONTINUES ON NASAL CANNULA AT 4 LPM, SATS IN THE UPPER 90s.
[2022-08-18] VITALS (75 sets, daily range): BP systolic 88–167; BP diastolic 43–116
[2022-08-18 06:35] LABS: BASO% 0.1 % (0-3); HEMATOCRIT 45.5 % (37.0-47.0); HEMOGLOBIN 14.9 g/dl (12.0-16.0); LYMPH% 16.4 % (15-41); MEAN CELL VOLUME 87.2 fL CALC (80.0-100.0); MEAN CORPUSCULAR HGB 28.5 pG CALC (26.0-32.0); MEAN CORPUSCULAR HGB CONC 32.7 g/dL CAL (32.0-36.0); MONO% 3.2 % (2-13); NEUT# 10.87 thou/uL (2.00-7.15); NEUT% 78.3 % (42-76); RED BLOOD COUNT 5.22 mill/uL (4.20-5.60); RED CELL DISTRI WIDTH 14.9 % (11.5-15.5)
--- NOTE | 2022-08-18 06:52 | NUR ---
TRIED TO CALL DAUGHTER TO LET HER KNOW ABOUT PTS SVT AND CONFIRM DNR STATUS, THERE IS NO YELLOW COPY IN THE CHART, WE HEARD THAT SHE WAS A SPECIAL INSTRUCTIONS DNR BUT THERE ARE NO INSTRUCTIONS IN THE COMPUTER SAYING SO. PT IS ON BIPAP AT 100% FIO2 AT THIS TIME.
[2022-08-18 07:00] LABS: ALBUMIN 3.3 g/dL (3.2-5.0); ALKALINE PHOSPHATASE 92 u/l (38-126); BILIRUBIN, TOTAL 0.5 mg/dL (0.02-1.3); BUN 17 mg/dL (8-23); BUN/CREATININE RATIO 52 (12-20 (CALC)); CARBON DIOXIDE 39 mmol/l (22-30); CHLORIDE 93 mmol/l (95-108); CREATININE 0.3 mg/dL (0.5-1.0); GFR FOR AFR.AMER. > 60 ML/MIN (>=60 (CALC)); GFR OTHER RACES > 60 ML/MIN (>=60 (CALC)); SODIUM 133 mmol/l (137-146); TOTAL PROTEIN 6.2 g/dL (6.3-8.2)
[2022-08-18 07:09] LABS: ANION GAP 5 (6-22 (CALC)); POTASSIUM 4.2 mmol/l (3.5-5.1); SGOT/AST 54 u/l (9-36)
--- NOTE | 2022-08-18 07:25 | NUR ---
BIPAP SB PLACED ON 3L NC.
--- NOTE | 2022-08-18 07:36 | NUR ---
PT PLACED BACK ON BIPAP DUE TO DESAT.
--- NOTE | 2022-08-18 09:08 | NUR ---
FIO2 DECREASED TO 90%.
--- NOTE | 2022-08-18 10:09 | NUR ---
FIO2 DECREASED TO 80%
--- NOTE | 2022-08-18 10:45 | NUR ---
FIO2 DECREASED TO 70%
--- NOTE | 2022-08-18 12:02 | NUR ---
FIO2 DECREASED TO 60%
--- NOTE | 2022-08-18 12:59 | NUR ---
FIO2 DECREASED TO 50%
--- NOTE | 2022-08-18 13:53 | NUR ---
FIO2 DECREASED TO 40%
--- NOTE | 2022-08-18 16:00 | NUR ---
FIO2 DECREASED TO 35%
[2022-08-18 16:26] LABS: URINE BILIRUBIN - DIPSTICK NEGATIVE (NEGATIVE); URINE BLOOD DIPSTICK LARGE (NEGATIVE); URINE CLARITY CLOUDY; URINE COLOR YELLOW; URINE GLUCOSE - DIPSTICK 100 mg/dL (NEGATIVE); URINE KETONE NEGATIVE (NEGATIVE); URINE LEUK ESTERASE MODERATE (Negative); URINE NITRITE - DIPSTICK NEGATIVE (Negative); URINE PROTEIN - DIPSTICK TRACE mg/dL (NEG-TRACE); URINE SPECIFIC GRAVITY 1.025; URINE UROBILINOGEN - DIPSTICK 0.2 E.U./dL (0.2)
[2022-08-18 16:48] LABS: URINE SQUAMOUS EPITHELIAL CELL FEW EPI/hpf (0-FEW); URINE WBC TNTC WBC/hpf (0-5)
--- NOTE | 2022-08-18 19:34 | NUR ---
TOLERATING BIPAP AT 35 % FIO2 .NO S/S OF DISTRESS NOTED.
--- NOTE | 2022-08-18 22:15 | NUR ---
PATIENT TURNED AND REPOSITIONED. TOLERATING BIPAP WELL.
[2022-08-19] VITALS (96 sets, daily range): BP systolic 72–172; BP diastolic 46–116
--- NOTE | 2022-08-19 01:25 | NUR ---
PATIENT SLEEPING. BIPAP IN PLACED .TOLERATING IT WELL.
--- NOTE | 2022-08-19 04:27 | NUR ---
RESTING COMFORTABLY. NOS/S OF DISTRESS NOTED.
[2022-08-19 05:45] LABS: HEMATOCRIT 40.7 % (37.0-47.0); HEMOGLOBIN 13.8 g/dl (12.0-16.0); IMMATURE GRANULOCYTES 1.7 % (0.0-5.0); LYMPH% 3.1 % (15-41); MEAN CELL VOLUME 85.7 fL CALC (80.0-100.0); MEAN CORPUSCULAR HGB 29.1 pG CALC (26.0-32.0); MEAN CORPUSCULAR HGB CONC 33.9 g/dL CAL (32.0-36.0); MONO% 4.4 % (2-13); NEUT# 7.29 thou/uL (2.00-7.15); NEUT% 90.8 % (42-76); RED BLOOD COUNT 4.75 mill/uL (4.20-5.60); RED CELL DISTRI WIDTH 14.5 % (11.5-15.5)
[2022-08-19 06:01] LABS: ALBUMIN 2.7 g/dL (3.2-5.0); ALKALINE PHOSPHATASE 82 u/l (38-126); ANION GAP 5 (6-22 (CALC)); BILIRUBIN, TOTAL 0.3 mg/dL (0.02-1.3); BUN 14 mg/dL (8-23); BUN/CREATININE RATIO 41 (12-20 (CALC)); CARBON DIOXIDE 37 mmol/l (22-30); CHLORIDE 95 mmol/l (95-108); CREATININE 0.3 mg/dL (0.5-1.0); GFR FOR AFR.AMER. > 60 ML/MIN (>=60 (CALC)); GFR OTHER RACES > 60 ML/MIN (>=60 (CALC)); POTASSIUM 4.2 mmol/l (3.5-5.1); SGOT/AST 25 u/l (9-36); SODIUM 133 mmol/l (137-146); TOTAL PROTEIN 5.1 g/dL (6.3-8.2)
--- NOTE | 2022-08-19 07:50 | NUR ---
BIPAP STANDBY. PLACED ON 4L NC.
--- NOTE | 2022-08-19 08:00 | NUR ---
Patient sitting up in bed. Dr. Josef young at bedside. Lopressor changed from PRN IV to scheduled BID. Patient weaned off of BIPAP at 0750. Patient current oxygen saturation level 96% on 3L NC. Patient is clear/diminished throughout. Breathing is even and unlabored. Patient denies any pain at this time. No issues or concerns at this time. Will continue to monitor.
--- NOTE | 2022-08-19 09:23 | NUR ---
Patient declined morning medications. This principal technical writer explained all medications and their importance, patient continued to decline. Patient did request that medications be left in room with her. Asked patient if it was okay to return in 20/30 minutes to discuss taking medications, patient agreed.
--- NOTE | 2022-08-19 09:49 | NUR ---
Followed up with patient about medications. Patient once again advised of the medication indications. Patient continuously declined. Will noftify MD and continue to monitor patient.
--- NOTE | 2022-08-19 10:00 | NUR ---
Patient lying in bed. Patient denies any pain at this time. No s/s of distress. No issues or concerns at this time. Breathing is even and unlabored. HR 97. Will continue to monitor.
--- NOTE | 2022-08-19 12:07 | NUR ---
Patient sititng up in bed eating lunch. Patient denies any pain at this time. Patient on 3L via NC oxygen saturation at 95%. Breathing is even and unlabored. No issues or concerns at this time.
--- NOTE | 2022-08-19 13:23 | NUR ---
Patient had an episode of low oxygen saturation at 67% and HR of 118. Increased patient's oxygen from 3L to 4L. Patient has been maintaining at 94% oxygen. Patient agreed to IV Metoprolol. Patient denies any pain or feeling SOB.
--- NOTE | 2022-08-19 14:00 | NUR ---
Patient lying in bed. Patient denies any pain at this time. Shortly after patient was rotated, patient desat to 67% with a HR of 44 at 1435. Patient placed back onto BIPAP machine to get HR and oxygen level WNL. BIPAP settings are 80% oxygen, 14/8 e/ipap, with a rate of 16.
--- NOTE | 2022-08-19 15:00 | NUR ---
Bipap settings: 60% oxygen, 14/8, and rate of 16. Current oxygen level 90% with a HR of 73.
--- NOTE | 2022-08-19 16:00 | NUR ---
Patient lying in the bed on L side. Patient refused to be repositioned at this time. Patient states she needs to be suctioned. Patient has secretions, but unable to cough them up. Patient was provided suction. No other issues or concerns at this time.
--- NOTE | 2022-08-19 17:41 | NUR ---
Patient c/o R sided chest pain. EKG ordered, but patient declined. This conventional underwriter will cancel order as requested.
--- NOTE | 2022-08-19 17:47 | NUR ---
Dr Alexander called this investigative writer; updated on pt condition/status; made aware pt desat to 66% with a drop in HR to 44 approx 1435; pt was placed back on bipap; also informed of pt complaints of chest pain but REFUSAL of EKG; order canceled
--- NOTE | 2022-08-19 18:00 | NUR ---
Patient lying in bed on L side. Patient refused to be turned. Patient advised on lying in one position for an extended period of time can lead to pressure ulcers. Patient indicated understanding and refused to be turned. Patient continuing to use BIPAP. Settings are 60% oxygen, i/epap 14/8, and rate of 16. Patient states her chest pain is better after taking Tylenol, it is now a 2. Patient denies any other issues or concerns at this time.
[2022-08-20] VITALS (26 sets, daily range): BP systolic 76–165; BP diastolic 48–121
[2022-08-20 05:37] LABS: BASO% 0.3 % (0-3); HEMATOCRIT 42.9 % (37.0-47.0); HEMOGLOBIN 14.6 g/dl (12.0-16.0); IMMATURE GRANULOCYTES 2.8 % (0.0-5.0); LYMPH% 3.3 % (15-41); MEAN CELL VOLUME 86.5 fL CALC (80.0-100.0); MEAN CORPUSCULAR HGB 29.4 pG CALC (26.0-32.0); MONO% 3.3 % (2-13); NEUT# 6.04 thou/uL (2.00-7.15); NEUT% 90.3 % (42-76); RED BLOOD COUNT 4.96 mill/uL (4.20-5.60); RED CELL DISTRI WIDTH 14.8 % (11.5-15.5)
[2022-08-20 05:50] LABS: ANION GAP 7 (6-22 (CALC)); BUN 10 mg/dL (8-23); BUN/CREATININE RATIO 47 (12-20 (CALC)); CARBON DIOXIDE 35 mmol/l (22-30); CHLORIDE 93 mmol/l (95-108); CREATININE 0.2 mg/dL (0.5-1.0); GFR FOR AFR.AMER. > 60 ML/MIN (>=60 (CALC)); GFR OTHER RACES > 60 ML/MIN (>=60 (CALC)); POTASSIUM 4.1 mmol/l (3.5-5.1); SODIUM 130 mmol/l (137-146)
--- NOTE | 2022-08-20 09:00 | NUR ---
PT SEEN AWAKE, ALERT, ORIENTED X 3. BREAKFAST WAS SET UP FOR PT, BUT SHE DID NOT EAT MUCH. VISITORS AT BEDSIDE.
--- NOTE | 2022-08-20 12:00 | NUR ---
PT CALLED TO ASK FOR BIPAP TO BE PLACED. SHE IS USING HAND MOTIONS FOR COMMUNICATION, VERY DIFFICULT TO INTERPRET WHAT SHE WANTS. SATS IMPROVED, LABOR OF BREATHING TRANSFERRED TO MACHINE, PT COMFORTABLE.
--- NOTE | 2022-08-20 15:33 | NUR ---
PT REMAINS ON BIPAP, SATS IN THE MID 90s. PT APPEARS COMFORTABLE.
--- NOTE | 2022-08-20 20:20 | NUR ---
PT REPOSITIONED TO R SIDE AND PILLOWS PLACED FOR COMFORT AND POSITIONING, SHE DENIES OTHER NEEDS
--- NOTE | 2022-08-20 22:30 | NUR ---
PT REFUSED REPOSITIONING, DID TAKE SOME SMALL SIPS OF WATER, HAS VERY WEAK, NON-PRODUCTIVE COUGH
[2022-08-21] VITALS (16 sets, daily range): BP systolic 99–155; BP diastolic 38–74
--- NOTE | 2022-08-21 00:18 | NUR ---
PT AGAIN REFUSED REPOSITIONING, ALSO DECLINED FOOD AND DRINK
--- NOTE | 2022-08-21 02:10 | NUR ---
REFUSED REPOSITIONING, DENIES ANY NEEDS, DOES NOT WANT ANYTHING TO DRINK
--- NOTE | 2022-08-21 04:39 | NUR ---
PT REFUSES REPOSITIONING, DENIES NEEDS
[2022-08-21 05:38] LABS: BASO% 0.1 % (0-3); HEMATOCRIT 42.1 % (37.0-47.0); HEMOGLOBIN 14.4 g/dl (12.0-16.0); IMMATURE GRANULOCYTES 3.2 % (0.0-5.0); LYMPH% 3.2 % (15-41); MEAN CELL VOLUME 84.5 fL CALC (80.0-100.0); MEAN CORPUSCULAR HGB 28.9 pG CALC (26.0-32.0); MEAN CORPUSCULAR HGB CONC 34.2 g/dL CAL (32.0-36.0); MONO% 2.9 % (2-13); NEUT# 6.23 thou/uL (2.00-7.15); NEUT% 90.6 % (42-76); RED BLOOD COUNT 4.98 mill/uL (4.20-5.60); RED CELL DISTRI WIDTH 14.3 % (11.5-15.5)
[2022-08-21 06:21] LABS: ANION GAP 6 (6-22 (CALC)); BUN 9 mg/dL (8-23); BUN/CREATININE RATIO 35 (12-20 (CALC)); CARBON DIOXIDE 38 mmol/l (22-30); CHLORIDE 90 mmol/l (95-108); CREATININE 0.2 mg/dL (0.5-1.0); GFR FOR AFR.AMER. > 60 ML/MIN (>=60 (CALC)); GFR OTHER RACES > 60 ML/MIN (>=60 (CALC)); MAGNESIUM 1.9 mg/dL (1.6-2.3); POTASSIUM 3.6 mmol/l (3.5-5.1); SODIUM 130 mmol/l (137-146)
--- NOTE | 2022-08-21 08:00 | NUR ---
Patient lying in bed on R side. Patient is on RA with NC off and next to her head. Oxygen saturation level of 93% on RA. Patient refuses to be repositioned. Reminded patient of the benefits of repositioning when on bed rest, patient still refused. Patient denies any pain at this time. Patient declined breakfast. Patient denies any issues or concerns at this time. Will continue to monitor.
--- NOTE | 2022-08-21 08:20 | NUR ---
Dr. Sarina young at bedside. Patient was advised of possible discharge home with home health.
--- NOTE | 2022-08-21 08:40 | NUR ---
Patient refused morning medications. Patient advised of the benefits of taking medications and their indications. Rope Walker followed up with patient about taking meds and patient again declined. Will continue to monitor.
--- NOTE | 2022-08-21 10:00 | NUR ---
Patient lying in bed on R side. Patient refused repositioning. Patient denies pain. No s/s of distress. Will continue to monitor.
[2022-08-21] MEDS ORDERED: LOPRESSOR25 MG PO (10:50)
[2022-08-21] MEDS ORDERED: MEDDOSEPAK PO (10:50)
--- NOTE | 2022-08-21 12:00 | NUR ---
Patient lying in bed on R side. Patient refused repositioning. Patient denies any pain at this time. Patient's oxygen saturation level is 95% on RA. Patient denies any concerns. No s/s of distress. Will continue to monitor.
--- NOTE | 2022-08-21 12:35 | NUR ---
Patient lying in bed. Patient was advised of discharge plan of being transported via [facility] to home with home health. The transport team is expected to arrive between 1300 and 1330. Patient agreed that this write could speak with daughter about discharge infromation. Patient requested to speak with daughter. This feature writer called daughter multiple times and was unable to reach her at the number on file. Needed to confirm that family would be at home when patient arrived. Updated Dr. Branch about the patient and family. Sarina advised speaking with case managers to confirm family was notified of patient's arrival. logistics manager stated she was unable to reach daughter via telephone to ensure family would be present upon arrival.
--- NOTE | 2022-08-21 13:03 | NUR ---
Spoke with patient's daughter via telephone. Daughter is aware of patient's arrival and ensured she would be home to receive patient. Reviewed patient's discharge instructions and daughter verbalized understanding; no questions or concerns.
--- NOTE | 2022-08-21 13:55 | NUR ---
This aligner typewriter and another nurse was prepping the patient for discharge. After discontinuing both IVs, patient was rolled on R side to assess bottom for pressure ulcers. Patient immediately began to desat with oxygen saturation level reaching 85%. Patient was rolled supine and oxygen saturation remained in the high 80s/low 90s. There is concern about patient desatting when transferring patient from bed to stretcher (medical transport). Dr. Branch advised of this new change. Patient is to be downgraded to the MS unit for observation.
--- NOTE | 2022-08-21 13:58 | NUR ---
Dr Branch called per this mortgage or loan underwriter in regards to discharge; mortgage or loan underwriter explained to MD upon repositioning pt, pt with complaints of sob, o2 sat noted to drop to 84% ( currently at 89% on RA); mortgage or loan underwriter has explained to MD that this new event has been unobservable due to the patient refusing repositioning; orders received to cancel dc and downgrade to MST
--- NOTE | 2022-08-21 14:02 | NUR ---
Liz Kramer called per investment underwriter; spoke with Vickie; transport expected between [id number]; transport canceled due to cancellation of discharge
--- NOTE | 2022-08-21 14:09 | NUR ---
Melissa Olmedo (daughter) called per this technical document writer; updated on plan of care/ cancellation of discharge for today; informed of oxygen level dropping during repositioning; pt has been declining repositioning (in which daughter admits patient does not like to be moved);
--- NOTE | 2022-08-21 16:00 | NUR ---
Patient lying in bed supine. Patient declines being repositioned. Patient refuses cardiac monitoring and BP. Patient denies any concerns at this time. NO s/s of distress. Will continue to monitor.
--- NOTE | 2022-08-21 16:49 | NUR ---
Patient refused BP and cardiac monitoring.
--- NOTE | 2022-08-21 18:08 | NUR ---
Patient transferred with 2L oxygen NC via stretcher from ICU to /S 291. Patient tolerated the transfer well. Suction set up in the room along with humidified oxygen. Patient's vitals were as follows: T: 97.3 HR: 85 BP: 155/74 O2 sat: 95% Patient declined being repositioned. Patient denies any pain at this time. No issues or concerns at this time. No s/s of distress. Will continue to monitor until handoff.
--- NOTE | 2022-08-21 18:20 | NUR ---
Patient refused all meals today. Patient was offered alternative meals, but declined.
--- NOTE | 2022-08-21 18:48 | NUR ---
daughter Melissa Olmdeo called per staff; informed pt has been transferred to [facility]; no questions or concerns presented per daughter
--- NOTE | 2022-08-21 20:00 | NUR ---
CALLED TO PATIENT ROOM BY SHADE CLASSIFIER. PATIENT FOUND WITH LARGE AMT OF CREAM COLORED DRAINAGE/SPUTUM COMING FROM PATIENT MOUTH. DRAINAGE WAS CLEANED UP AND PATIENT WAS SUCTIOND FOR SMALL AMT OF THICK CREAM COLORED SPUTUM. PATIENT IS AWAKE ALERT AND ORIENTEDEX3. HOB ELEVATED-PATIENT O2 SATS WERE LOW TO MID 80'S. O2 VIA NASAL CANNULA INCREASED TO 4LPM WITH O2 SATS IN LOW 90'S-HIGH 80'S. PATIENT WITH EXTREMELY WEAK COUGH. PRONOUNCED UPPER AIRWAY CONGESTION NOTED. PATIENT IS ON ISOLATION FOR COVID. TELE MONITOR IN PLACE-SR-80'S WITH PVC'S AND PAC. ANTOINE PATENT AND DRIANING YELLOW URINE. TAKING PO SIPS OF FLUJIDS. ORIENTED TO ROOM AND SURROUDINGS. INSTRUCTED ON USE OF NURSE CALL LIGHT SYSTEM AND TV REMOTE. SAFETY PRECAUTIONS REINFORCED. CALL LIGHT IN REACH. WILL CONT TO MONITOR.
--- NOTE | 2022-08-21 21:15 | NUR ---
PATIENT SITTING UP IN BED WATCHING TV. SEEMS A BIT MORE COMFORTABLE AT THIS TIME. O2 VIA NASAL CANNULA AT 4LPM IN PLACE WITH O2 SATS 90-91%. STILL WITH UPPER AIRWAY CONGESTION AND VERY WEAK COUGH. PATIENT DID TAKE ALL OF HER HS MEDS TONIGHT-WAS ABLE TO SWALLOW WITHOUT ANY DIFFICULTY. PATIENT WAS PROVIDED WITH MILK AND KATE CRACKER FOR SNACK AT THIS TIME-FEEDING HERSELF. TOLERATED WELL. SALINE LOCK TO LACINTACT AND HEALTHY AT THIS TIME WITH GOOD BLOOD RETURN SOLU-MEDROL WAS GIVEN ORDERED. PATIENT IS ON AIR MATTRESS. ANTOINE CATH PATENT AND DRAINING YELLOW URINE. UNKNOWN LAST BM. PATIENT WITH SEVERE FOOT DROP TO BOTH FEET. HX OF PARAPLEGIA. REPOSITIONED IN BED WITH ASSIST. SAFETY PRECAUTIONS REINFORCED. CALL LIGHT IN REACH. WILL CONT TO MONITOR.
[2022-08-22 00:01] VITALS: BP 125/59
--- NOTE | 2022-08-22 00:30 | NUR ---
PATIENT RESTING IN BED AT THIS TIME WITH O2 VIA NASAL CANNNULA IN PLACE AT 4LPM. O2 SATS ARE 91% AT THIS TIME. HOB IS ELEVATED. TELE MONITOR IN PLACE. ANOTINE PATENT AND DRAINING YELLOW URINE. CALL LIGHT IN REACH. WILL CONT TO MONITOR.
[2022-08-22 05:09] VITALS: BP 135/55
[2022-08-22 07:03] VITALS: BP 140/94
--- NOTE | 2022-08-22 08:00 | NUR ---
PT RESTING IN HIGH FOWLERS POSITION.PT A/O ASSESSMENT AND VS COMPLETED. HEART RHYTHM ON TELE RESPIRAITONS ON 4L OF O2 PT IV NOTED TO LAC. S.L PT DENIES ADDITIONAL NEEDS AT THE TIME ALL SAFETY PRECAUTIONS IN PLACE WITH CALL LIGHT INREACH.
[2022-08-22 09:25] VITALS: BP 160/70
--- NOTE | 2022-08-22 12:47 | NUR ---
PT RESTING IN SEMI FOWLERS POSITION. HOSPICE CONSULTED FOR PT.
--- NOTE | 2022-08-22 15:52 | NUR ---
FAMILY AT BEDSIDE. HOSPICE NURSE TO MEET WITH PT AND FAMILY.
[2022-08-22 17:23] VITALS: BP 139/71
[2022-08-22 18:33] VITALS: BP 134/71
--- NOTE | 2022-08-22 20:00 | NUR ---
PATIENT SITTING UP IN BED WITH O2 VIA NASAL CANNULA IN PLACE AT 4LPM. O2 SATS IN LOW 90'S. PROVIDED WITH HS MEDS-ABLE TO TAKE PO WMEDS WITHOUT ANY DIFFICULTY. PATIENT CONT TO HAVE UPPER AIRWAY CONGESTION. ATTEMPT TO SUCTION PATIENT WITH LITTLE EFFECT. PATIENT TRYING TO BITE ON YANKAR. MEDICATED WITH SOLU-MEDROL ORDERED VIA LAC SALINE LOCK. SITE REMAINS HEALTHY WITH GOOD BLOOD RETURN. ANTOINE CATH PATENT AND DRAINING YELLOW URINE. TELE MOITOR IN PLACE. PATIENT ON AIR MATTRESS AND ON ISOLATION FOR HX OF COVID. PATIENT REMAINS SOB AT REST. SAFETY PRECAUTIONS REINFORCED. CALL LIGHT IN REACH. WILL CONT TO MONITOR.
[2022-08-23] VITALS (9 sets, daily range): BP systolic 102–143; BP diastolic 49–62
--- NOTE | 2022-08-23 | NUR ---
PATIENT WITH HOB ELEVATED-EYES ARE CLOSED. RESPS ARE SLIGHTLY LABORED WITH O2 SAT 94% WITH O2 N/C AT 4LPM. ANTOINE PATENT AND DRAINING YELLOW URINE. TELE MONITOR IN PLACE. CALL LIGHT IN REACH. WILL CONT TO MONITOR.
--- NOTE | 2022-08-23 13:25 | NUR ---
PT ARRIVED TO THE FLOOR VIA CART. PT A/OX3 CALM AND COOPERATIVE, TELE MONITORING IN PROGRESS. PT DENIES PAIN, SOB OR DISCOMFORT ON RA VITALS NOTED. ANTOINE SECURED AND HANGING. LEFT FOREARM 20G PATENT, IVF BANANA BAG INFUSING. RIGHT PIV 20G PATENT AND K RIDER INFUSING. SKIN INTACT. CALL LIGHT WITHIN REACH. SAFETY PRECAUTIONS IN PLACE. BELONGINGS AT BEDSIDE,
--- NOTE | 2022-08-23 19:52 | NUR ---
PATIENT SITTING UP IN BED-O2 VIA NASAL CANNULA IN PLACE AT 4LPM WITH O2 SAT 99%. OPENS EYES WHEN SPOKEN TO. PATIENT WITH POOR APPETITE FOR DINNER. PATIENT FOR DISCHARGE TO HOME WITH DAUGHTER MALLORIE. AWAITING AMBULANCE FOR TRANSPORT AT THIS TIME. PATIENT WITH ANTOINE CATH INTACT AND GOING HOME WITH HOME HEALTH SERVICES. STILL WITH ALOT OF UPPER AIRWAY CONGESTION. MEDS HAVE BEEN GIVEN ORDERED. CALL LIGHT IN REACH. WILL CONT TO MONITOR.
--- NOTE | 2022-08-23 20:30 | NUR ---
RECIEVED CALL FROM NORMA BAHENA AND STATES THAT THE AMBULANCE IS RUNNING LATE AND WILL BE DELAYED APPROX 2 HOURS. ELIZABETH PARRA RN NOTIFIED AND LEFT MESSAGE WITH PATIENT DAUGHTER RANDOLPH'S PHONE THAT TRANSPORT WAS DELAYED. PATIENT WAS ALSO NOTIFIED. WILL CONT TO MONITOR.
--- NOTE | 2022-08-23 21:24 | NUR ---
RECIEVED CALL FROM DR PRIMITIVO DE LA CRUZING PATIENT DISCHARGE TO HOME. EXPLAINED THAT WE HAD RECIEVED CALL FROM VERONICA BAHENA AND THERE WAS DELAY. NEW ORDER RECIEVED TO DELAY DISCHARGE HOME UNTIL TOMORROW MORNING DUE TO DELAY IN TRANSPORT TONIGHT AND THE LATE HOUR. ELIZABETH PARRA RN NOTIFIED. VERONICA RIDES NORMA NOTIFIED AND WILL RESCHEDULE FOR TOMMORROW MORNING. LEFT MESSAGE WITH RANDOLPH HER DAUGHTER PHONE#[phone] THAT HE MOTHER WILL NOT BE ARRIVING HOME TONIGHT DUE TO THE LATE HOUR AND DISCHARGE HOME WITH BE RESCHEDULED TOMORROW MORNING. WILL CONT TO MONITOR.
--- NOTE | 2022-08-23 21:54 | NUR ---
DAUGHTER RANDOLPH RETURNED CALL AND WAS NOTIFIED THAT PATIENT, HER MOTHER WOULD BE STAYING THE NIGHT HERE AT [facility] DUE TO THE DELAY IN TRANSPORT BY ALLY RIDES. WILL RESCHEDULE THE DISCHARGE AND TRANSPORT FOR TOMORROW MORNING WHEN CASE MANAGEMENT RETURNS. WILL CONT TO MONITOR. PATIENT RESTING IN BED WITH O2 IN PLACE VIS NASAL CANNULA. RESPS ARE EVEN AND UNLABORED AT THIS TIME. EYES ARE CLOSED. TELE MONITOR IN PLACE. ANTOINE CATH PATENT AND DRAINING SMALL AMT OF YELLOW URINE. CALL LIGHT IN REACH-PATIENT ON AIR MATTRESS. ON ISOLATION FOR COVID.
--- NOTE | 2022-08-23 23:17 | NUR ---
RESTING IN BED AT THIS TIME WITH O2 VIA NASAL CANNULA IN PLACE. HOB IS ELEVATED. EYES ARE CLOSED AND RESPS ARE EVEN AND UNLABORED. TELE MONITOR IN PLACE. ANTOINE CATH PATENT AND DRAINING YELLOW URINE. CALL LIGHT IN REACH. WILL CONT TO MONITOR.
[2022-08-24 00:06] VITALS: BP 104/57
[2022-08-24 04:56] VITALS: BP 101/53
--- NOTE | 2022-08-24 05:00 | NUR ---
PATIENT SITTING UP IN BED WITH O2 VIA NASAL CANNULA IN PLACE. ANTOINE CATH PATENT AND DRAINING SMALL AMT OF YELLOW URINE. TELE MONITOR IN PLACE. FOR DISCHARGE HOME THIS MORNING. EYES ARE CLOSED. RESPS ARE EVEN AND UNLABORED. CALL LIGHT IN REACH. WILL CONT TO MONITOR.
--- NOTE | 2022-08-24 07:00 | NUR ---
REPORT FROM CINDY ALCAZAR. ASSUMED PT CARE.
[2022-08-24 07:17] VITALS: BP 90/51
--- NOTE | 2022-08-24 11:16 | NUR ---
PT RESTING IN BED. NO APPARENT DISTRESS NOTED. CALL LIGHT WITHIN REACH. WILL CONTINUE TO MONITOR.
[2022-08-24 11:31] VITALS: BP 92/46
--- NOTE | 2022-08-24 13:10 | NUR ---
Physical therapist attempted to conduct initial evaluation with this patient, but patient refused to be evaluated, not responding to any inquiry regarding her condition.
--- NOTE | 2022-08-24 13:31 | NUR ---
pt on 2L NC 94%
[2022-08-24 14:42] VITALS: BP 97/52
--- NOTE | 2022-08-24 17:13 | NUR ---
Discharge instructions given. Patient verbalizes understanding of same. Discharged in stable condition via Medical Transport to Home with staff. All belongings sent with pt.
--- NOTE | 2022-08-24 17:14 | NUR ---
PLACED CALL TO DAUGHTER AT THIS TIME TO DISCUSS DISCHARGE INSTRUCTIONS. LEFT MESSAGE. PT LEFT BY STRETCHER VIA MEDICAL TRANSPORT.
== END 2022-08-24 17:13 | DRG 177 ==
LOC: ED 06:56 → ED-I 09:40 → ED 10:00 → MS2 10:01 → ICU 08-15 15:45 → MS2 08-21 18:00
PROVIDERS: Family Medicine; Internal Medicine; Nurse Practitioner Family; ADMIT Internal Medicine; ATTEND Internal Medicine
PROC: 5A09457 Assistance with Respiratory Ventilation, 24-96 Consecutive Hours, Continuous Positive Airway Pressure (ICD-10-PCS; principal; 2022-08-15)
PROC: 0T9B70Z Drainage of Bladder with Drainage Device, Via Natural or Artificial Opening (ICD-10-PCS; 2022-08-18)
PROC: 5A09357 Assistance with Respiratory Ventilation, Less than 24 Consecutive Hours, Continuous Positive Airway Pressure (ICD-10-PCS; 2022-08-18)
DX: U07.1 COVID-19 (principal); J12.82 Pneumonia due to coronavirus disease 2019; J96.01 Acute respiratory failure with hypoxia; C79.51 Secondary malignant neoplasm of bone; G82.20 Paraplegia, unspecified; D68.69 Other thrombophilia; I47.1 Supraventricular tachycardia; C73 Malignant neoplasm of thyroid gland; I10 Essential (primary) hypertension; E87.6 Hypokalemia; G62.9 Polyneuropathy, unspecified; E78.5 Hyperlipidemia, unspecified; R33.9 Retention of urine, unspecified; E66.01 Morbid (severe) obesity due to excess calories; Z66 Do not resuscitate; Z91.013 Allergy to seafood; Z91.041 Radiographic dye allergy status
CPT/HCPCS: J1650

== ENCOUNTER 2022-08-30 14:39 | Inpatient (IN) | payer MEDICARE, MEDICAID ==
[~2022-08-30] VITALS: Ht 154.9 cm; Wt 77.7 kg
[2022-08-30] VITALS (25 sets, daily range): BP systolic 80–130; BP diastolic 37–93
[~2022-08-30 14:39] MED LIST changes: +DEXAMETHASON0.5 MG PO; +KLOR-CON M2020 MEQ PO; +LOPRESSOR25 MG PO; +MEDDOSEPAK PO; +NORVASC5 M1 PO; +OMNICEF300 MG PO; +PROTONIX40 M2 PO
[2022-08-30 15:52] LABS: URINE BILIRUBIN - DIPSTICK NEGATIVE (NEGATIVE); URINE BLOOD DIPSTICK LARGE (NEGATIVE); URINE COLOR YELLOW; URINE GLUCOSE - DIPSTICK NEGATIVE (NEGATIVE); URINE KETONE TRACE mg/dL (NEGATIVE); URINE PROTEIN - DIPSTICK 100 mg/dL (NEG-TRACE); URINE SPECIFIC GRAVITY 1.015; URINE UROBILINOGEN - DIPSTICK 0.2 E.U./dL (0.2)
[2022-08-30 15:58] LABS: URINE BACTERIA MANY hpf; URINE LEUK ESTERASE MODERATE (NEGATIVE); URINE NITRITE - DIPSTICK POSITIVE (Negative); URINE RBC 25-50 RBC/hpf (0-5); URINE SQUAMOUS EPITHELIAL CELL FEW EPI/hpf (0-FEW); URINE TRANSITIONAL EPI. CELLS FEW hpf; URINE WBC TNTC WBC/hpf (0-5); URINE YEAST FEW hpf
[2022-08-30 16:19] LABS: BASO% 0.1 % (0-3); EOS% 0.1 % (0-8); HEMATOCRIT 44.2 % (37.0-47.0); HEMOGLOBIN 14.8 g/dl (12.0-16.0); IMMATURE GRANULOCYTES 5.2 % (0.0-5.0); LYMPH% 4.9 % (15-41); MEAN CELL VOLUME 84.4 fL CALC (80.0-100.0); MEAN CORPUSCULAR HGB 28.2 pG CALC (26.0-32.0); MEAN CORPUSCULAR HGB CONC 33.5 g/dL CAL (32.0-36.0); MONO% 1.9 % (2-13); NEUT# 7.36 thou/uL (2.00-7.15); NEUT% 87.8 % (42-76); RED BLOOD COUNT 5.24 mill/uL (4.20-5.60); RED CELL DISTRI WIDTH 14.9 % (11.5-15.5)
[2022-08-30 16:36] LABS: ALBUMIN 3.2 g/dL (3.2-5.0); ALKALINE PHOSPHATASE 110 u/l (38-126); ANION GAP 11 (6-22 (CALC)); BUN 12 mg/dL (8-23); BUN/CREATININE RATIO 37 (12-20 (CALC)); CARBON DIOXIDE 35 mmol/l (22-30); CHLORIDE 85 mmol/l (95-108); CREATININE 0.3 mg/dL (0.5-1.0); GFR FOR AFR.AMER. > 60 ML/MIN (>=60 (CALC)); GFR OTHER RACES > 60 ML/MIN (>=60 (CALC)); POTASSIUM 3.9 mmol/l (3.5-5.1); SGOT/AST 29 u/l (9-36); SODIUM 127 mmol/l (137-146)
[2022-08-30 16:44] LABS: BILIRUBIN, TOTAL 0.8 mg/dL (0.02-1.3); TOTAL PROTEIN 6.2 g/dL (6.3-8.2)
[2022-08-31 04:15] VITALS: BP 96/52
[2022-08-31 05:16] LABS: BASO% 0.1 % (0-3); IMMATURE GRANULOCYTES 4.2 % (0.0-5.0); LYMPH% 3.6 % (15-41); MEAN CELL VOLUME 86.1 fL CALC (80.0-100.0); MEAN CORPUSCULAR HGB 29.5 pG CALC (26.0-32.0); MEAN CORPUSCULAR HGB CONC 34.3 g/dL CAL (32.0-36.0); MONO% 2.2 % (2-13); NEUT# 6.49 thou/uL (2.00-7.15); NEUT% 89.9 % (42-76); RED BLOOD COUNT 4.1 mill/uL (4.20-5.60); RED CELL DISTRI WIDTH 15.1 % (11.5-15.5)
[2022-08-31 05:18] LABS: HEMATOCRIT 35.3 % (37.0-47.0); HEMOGLOBIN 12.1 g/dl (12.0-16.0)
[2022-08-31 05:35] LABS: ALKALINE PHOSPHATASE 82 u/l (38-126); ANION GAP 4 (6-22 (CALC)); BUN 8 mg/dL (8-23); BUN/CREATININE RATIO 27 (12-20 (CALC)); CARBON DIOXIDE 34 mmol/l (22-30); CHLORIDE 95 mmol/l (95-108); CREATININE 0.3 mg/dL (0.5-1.0); GFR FOR AFR.AMER. > 60 ML/MIN (>=60 (CALC)); GFR OTHER RACES > 60 ML/MIN (>=60 (CALC)); POTASSIUM 3.2 mmol/l (3.5-5.1); SGOT/AST 18 u/l (9-36); SODIUM 130 mmol/l (137-146)
[2022-08-31 05:41] LABS: BILIRUBIN, TOTAL 0.4 mg/dL (0.02-1.3); TOTAL PROTEIN 4.7 g/dL (6.3-8.2)
[2022-08-31 05:42] LABS: ALBUMIN 2.4 g/dL (3.2-5.0)
[2022-08-31 06:05] LABS: C-REACTIVE PROTEIN 13.5 mg/dL (0-0.9)
[2022-08-31 06:17] VITALS: BP 96/52
[2022-08-31 10:29] VITALS: BP 105/68
[2022-08-31 18:50] VITALS: BP 108/58
[2022-08-31 21:21] VITALS: BP 148/109
[2022-09-01] VITALS (23 sets, daily range): BP systolic 71–143; BP diastolic 34–120
[2022-09-02] VITALS (22 sets, daily range): BP systolic 63–184; BP diastolic 34–87
== END 2022-09-02 21:08 | disposition expired | DRG 177 ==
LOC: ED 14:39 → ED-I 16:45 → ED 17:13 → MS2 17:14
PROVIDERS: Emergency Medicine; Internal Medicine; ADMIT Internal Medicine; ATTEND Internal Medicine
DX: U07.1 COVID-19 (principal); J12.82 Pneumonia due to coronavirus disease 2019; J96.21 Acute and chronic respiratory failure with hypoxia; G82.20 Paraplegia, unspecified; N39.0 Urinary tract infection, site not specified; C79.51 Secondary malignant neoplasm of bone; J44.0 Chronic obstructive pulmonary disease with (acute) lower respiratory infection; I47.1 Supraventricular tachycardia; I95.9 Hypotension, unspecified; C73 Malignant neoplasm of thyroid gland; I48.0 Paroxysmal atrial fibrillation; I10 Essential (primary) hypertension; E78.5 Hyperlipidemia, unspecified; G62.9 Polyneuropathy, unspecified; B96.5 Pseudomonas (aeruginosa) (mallei) (pseudomallei) as the cause of diseases classified elsewhere; Z66 Do not resuscitate; Z96.0 Presence of urogenital implants; Z91.013 Allergy to seafood; Z53.20 Procedure and treatment not carried out because of patient's decision for unspecified reasons
CPT/HCPCS: G0378; J0282; J1650